=== PATIENT | female | born 1955 | race Caucasian/White ===

== ENCOUNTER 2016-12-29 22:37 | Emergency (ER) | payer BC ==
[2016-12-29 22:46] VITALS: BP 160/87; PULSE 81; RESP 16; TEMP 98.8; O2SAT 96
--- NOTE | 2016-12-29 23:10 | ED PDOC ---
Lower Extremity Pain/Injury Time Seen by Provider: 12/29/16 22:47 Chief Complaint (Nursing): Lower Extremity Problem/Injury Chief Complaint (Provider): Right Ankle Pain History Per: Patient History/Exam Limitations: no limitations Current Symptoms Are (Timing): Still Present Additional Complaint(s): Kathleen Beckwith, a 61 year old female, presents to the ED complaining of ankle pain. The patient states that prior to arrival, she twisted her ankle while walking down a flight of stairs. She states that she feels pain in the ankle and does note some swelling on the right side. The patient states that she cannot bear weight on the ankle but states that after she fell she was able to get up and walk. Denies any other injuries. - Ankle/Foot Description Of Injury: Twisted Currently Unable To: Bear Weight Past Medical History Reviewed: Historical Data, Nursing Documentation, Vital Signs Vital Signs: Last Vital Signs Temp 98.8 F 12/29/16 22:42 Pulse 81 12/29/16 22:42 Resp 16 12/29/16 22:42 BP 160/87 H 12/29/16 22:42 Pulse Ox 96 12/29/16 22:42 - Medical History PMH: No Chronic Diseases - Surgical History Surgical History: - Family History Family History: States: Unknown Family Hx - Home Medications Home Medications: Ambulatory Orders Medication Instructions Recorded Ibuprofen [Motrin] 600 mg PO Q8 PRN #20 tab 12/29/16 - Allergies Allergies/Adverse Reactions: Allergies Allergy/AdvReac Type Severity Reaction Status Date / Time apple Allergy fainting Verified 12/29/16 22:46 Review of Systems ROS Statement: Except As Marked, All Systems Reviewed And Found Negative Musculoskeletal: Positive for: Other (Right Ankle Pain) Physical Exam - Reviewed Nursing Documentation Reviewed: Yes Vital Signs Reviewed: Yes - Physical Exam Appears: Positive for: Non-toxic, No Acute Distress Head Exam: Positive for: ATRAUMATIC, NORMAL INSPECTION, NORMOCEPHALIC Skin: Positive for: Normal Color, Warm, Dry Eye Exam: Positive for: Normal appearance, EOMI, PERRL Cardiovascular/Chest: Positive for: Regular Rate, Rhythm, Chest Non Tender. Negative for: Tachycardia Respiratory: Positive for: Normal Breath Sounds. Negative for: Wheezing, Respiratory Distress Extremity: Positive for: Tenderness (tenderness to right lateral malleoulus area.), Swelling (Swelling to right lateral malleoulus area.). Negative for: Normal ROM (Limited ROM to right ankle due to pain.), Deformity Neurologic/Psych: Positive for: Alert, Oriented - ECG O2 Sat by Pulse Oximetry: 96 (RA) Pulse Ox Interpretation: Normal Medical Decision Making Medical Decision Makin Initial Impression: 61 year old female presenting with ankle sprain r/o ankle fracture Initial Plan: * RAD Ankle AP LAT * Motrin Tab 600mg PO * Reevaluation Right ankle xray: no acute findings Scribe Attestation Documented by Marielos Corona acting as a scribe for Mitzi Fernandes MD. Provider Attestation: All medical record entries made by the Scribe were at my direction and personally dictated by me. I have reviewed the chart and agree that the record accurately reflects my personal performance of the history, physical exam, medical decision making, and the department course for this patient. I have also personally directed, reviewed, and agree with the discharge instructions and disposition. Lisa Ankle Rules - Malleolar zone tenderness? Posterior edge or tip of lateral malleolus: Yes Posterior edge or tip of medial malleolus: No Inability to bear weight both immediately and in the ED: Yes - Midfoot zone tenderness? Base of 5th Metatarsal: No Navicular: No Inability to bear weight both immediately and in the ED: No - XRAY INDICATED Is an ankle x-ray indicated based on findings?: Yes Disposition - Clinical Impression Clinical Impression: Right ankle sprain - Patient ED Disposition Is Patient to be Admitted: No Doctor Will See Patient In The: Office Counseled Patient/Family Regarding: Studies Performed, Diagnosis, Need For Followup - Disposition Referrals: Podiatry Clinic [Outside] Disposition: Routine/Home Disposition Time: 23:31 Condition: GOOD Additional Instructions: Take motrin for pain. Follow up with podiatry within 1 week. Prescriptions: Ibuprofen [Motrin] 600 mg PO Q8 PRN #20 tab PRN Reason: Pain, Moderate (4-7) Instructions: Ankle Sprain (ED)
--- NOTE | 2016-12-30 09:28 | RAD ---
PROCEDURE: Right Ankle Radiographs. HISTORY: ankle pain injury COMPARISON: None FINDINGS: BONES: Normal. No fracture. JOINTS: Normal. No osteoarthritis. Ankle mortise maintained. Talar dome intact SOFT TISSUES: Moderate soft tissue swelling overlying the lateral malleolus. OTHER FINDINGS: None. IMPRESSION: Only AP and lateral views of the ankle. No acute fracture or dislocation noted in this study.
== END 2016-12-30 00:06 | disposition home or self-care (01) ==
LOC: H.ER 22:37
DX: S93.401A Sprain of unspecified ligament of right ankle, initial encounter (principal); X50.9XXA Other and unspecified overexertion or strenuous movements or postures, initial encounter; Y92.89 Other specified places as the place of occurrence of the external cause